=== PATIENT | male | born 1970 | race Caucasian/White ===

== ENCOUNTER 2017-04-26 16:33 | Inpatient (IN) | payer MEDICARE, MEDICAID ==
[~2017-04-26] VITALS: Ht 165.1 cm; Wt 68.9 kg
[2017-04-26] MEDS ORDERED: METO25 PO (17:01)
[2017-04-26] MEDS ORDERED: HYDR25TA84 PO (17:01)
[2017-04-26] MEDS ORDERED: ACET1TAB15 PO (17:01)
[2017-04-26] MEDS ORDERED: ALPR0.5T8 PO (17:01)
[2017-04-26] MEDS ORDERED: SEVEC800 PO (17:01)
[2017-04-26] MEDS ORDERED: SERT50TA12 PO (17:01)
[2017-04-26] MEDS ORDERED: ATOR10TA84 PO (17:01)
[2017-04-26] MEDS ORDERED: LAMO100 PO (17:01)
[2017-04-26] MEDS ORDERED: PANT40TA25 PO (17:03)
[2017-04-26] MEDS ORDERED: FAMO20 PO (17:03)
[2017-04-26] MEDS ORDERED: AMLO-511 PO (17:03)
[2017-04-26] MEDS ORDERED: LEVE500T53 PO (17:03)
[2017-04-26] MEDS ORDERED: DiphenhydrAMINE HCL 25 MG CAPSULE PO ONE (20:00)
[2017-04-26 20:16] LABS: BASOPHILS % (AUTO) 0.1 % (0.0-2.0); EOSINOPHILS # (AUTO) 0.02 K/uL (0.00-0.70); EOSINOPHILS % (AUTO) 0.27 % (1.0-6.0); HEMATOCRIT 30.2 % (41-53); HEMOGLOBIN 10.2 g/dL (13.5-17.5); LYMPHOCYTES # (AUTO) 0.4 K/uL (1.0-4.8); LYMPHOCYTES % (AUTO) 4.2 % (22.0-44.0); MEAN CORPUSCULAR HEMOGLOBIN 32.9 pg (26.0-34.0); MEAN CORPUSCULAR HGB CONC 33.8 G/dL (31.0-37.0); MEAN CORPUSCULAR VOLUME 97 fL (80-100); MONOCYTES # (AUTO) 0.5 K/uL (0.1-1.0); MONOCYTES % (AUTO) 5.4 % (2.0-9.0); NEUTROPHILS # (AUTO) 8.1 K/uL (1.8-7.7); PLATELET COUNT (AUTO) 169 K/uL (150-450); RED BLOOD CELL COUNT(AUTO) 3.11 MIL/uL (4.50-5.90); RED CELL DISTRIBUTION WIDTH 13.1 % (11.5-14.5)
[2017-04-26 20:17] LABS: NEUTROPHILS % (AUTO) 90.1 % (40.0-70.0)
[2017-04-26 20:34] LABS: ALANINE AMINOTRANSFERASE 17 U/L (12-78); ALKALINE PHOSPHATASE 78 U/L (46-116); ANION GAP 20 mmol/L (8-16); ASPARTATE AMINOTRANSFERASE < 5 U/L (15-37); BILIRUBIN,TOTAL 0.6 mg/dL (0.1-1.0); CALCIUM, TOTAL 10.4 mg/dL (8.8-10.5); CARBON DIOXIDE 19 mmol/L (22-29); CHLORIDE 96 mmol/L (98-107); CREATININE 17.23 mg/dL (0.60-1.30); GLOMERULAR FILTR. RATE CALC 3 mL/min (>60); GLUCOSE,RANDOM 100 mg/dL (70-110); POTASSIUM 5.3 mmol/L (3.5-5.1); SODIUM SERUM 135 mmol/L (136-145); TOTAL PROTEIN, SERUM 8.4 g/dL (6.4-8.2)
[2017-04-26 20:46] LABS: B-TYPE NATRIURETIC PEPTIDE 432 pg/mL (0-100)
[2017-04-26 20:48] LABS: UREA NITROGEN, BLOOD 114 mg/dL (7-18)
[2017-04-26] MEDS ORDERED: HydrALAZINE HCL 25 MG TABLET PO ONE (21:15)
[2017-04-26] MEDS ORDERED: ONDANSETRON HCL 4 MG/2 ML VIAL IVP PRN (22:00)
[2017-04-26] MEDS ORDERED: 0.9% SODIUM CHLORIDE 10 ML SYRINGE IVP PRN (22:00)
[2017-04-26] MEDS ORDERED: ACETAMINOPHEN 325 MG TABLET PO PRN (22:00)
[2017-04-26 22:26] VITALS: BP 152/83
[2017-04-26] MEDS ORDERED: PNEUMOCOCCAL VACCINE POLYVALENT 0.5 ML VIAL [PPSV23] IM ONE (23:00)
[2017-04-26] MEDS ORDERED: INFLUENZA VIRUS VACCINE QVS 2017-18 (3YR+)/PF 60 MCG/0.5 ML SYRINGE IM ONE (23:00)
[2017-04-27 04:58] VITALS: BP 145/98
[2017-04-27] MEDS ORDERED: SODIUM CHLORIDE 0.9% 2,000 ML IV ONE (10:11)
[2017-04-27] MEDS ORDERED: ACETAMINOPHEN/CODEINE 300-60 MG TABLET PO PRN (10:15)
[2017-04-27] MEDS: LevETIRAcetam 500 MG TABLET PO SCH ×2 (10:18→20:30)
[2017-04-27] MEDS: SERTRALINE HCL 50 MG TABLET PO SCH (14:28)
[2017-04-27] MEDS: LamoTRIgine 100 MG TABLET PO SCH (14:28)
[2017-04-27 15:24] LABS: INFLUENZA TYPE A NEGATIVE FOR TYPE A (NEGATIVE); INFLUENZA TYPE B NEGATIVE FOR TYPE B (NEGATIVE)
[2017-04-27 15:41] LABS: BASOPHILS % (AUTO) 0.3 % (0.0-2.0); EOSINOPHILS % (AUTO) 2.2 % (1.0-6.0); HEMATOCRIT 25.8 % (41-53); HEMOGLOBIN 9.1 g/dL (13.5-17.5); LYMPHOCYTES # (AUTO) 0.5 K/uL (1.0-4.8); LYMPHOCYTES % (AUTO) 10.9 % (22.0-44.0); MEAN CORPUSCULAR HEMOGLOBIN 33.1 pg (26.0-34.0); MEAN CORPUSCULAR HGB CONC 35.1 G/dL (31.0-37.0); MEAN CORPUSCULAR VOLUME 94 fL (80-100); MONOCYTES # (AUTO) 0.4 K/uL (0.1-1.0); MONOCYTES % (AUTO) 7.3 % (2.0-9.0); NEUTROPHILS # (AUTO) 3.9 K/uL (1.8-7.7); NEUTROPHILS % (AUTO) 79.3 % (40.0-70.0); PLATELET COUNT (AUTO) 155 K/uL (150-450); RED BLOOD CELL COUNT(AUTO) 2.74 MIL/uL (4.50-5.90); RED CELL DISTRIBUTION WIDTH 12.8 % (11.5-14.5)
[2017-04-27 15:48] VITALS: BP 138/90
[2017-04-27 16:08] LABS: ANION GAP 12 mmol/L (8-16); CALCIUM, TOTAL 9.3 mg/dL (8.8-10.5); CARBON DIOXIDE 26 mmol/L (22-29); CHLORIDE 99 mmol/L (98-107); CREATININE 8.43 mg/dL (0.60-1.30); GLOMERULAR FILTR. RATE CALC 7 mL/min (>60); GLUCOSE,RANDOM 157 mg/dL (70-110); POTASSIUM 3.3 mmol/L (3.5-5.1); SODIUM SERUM 137 mmol/L (136-145); UREA NITROGEN, BLOOD 46 mg/dL (7-18)
[2017-04-27 16:16] LABS: ALANINE AMINOTRANSFERASE 14 U/L (12-78); ALBUMIN 3.3 g/dL (3.4-5.0); ALKALINE PHOSPHATASE 66 U/L (46-116); ASPARTATE AMINOTRANSFERASE < 5 U/L (15-37); BILIRUBIN,TOTAL 0.6 mg/dL (0.1-1.0); TOTAL PROTEIN, SERUM 7.3 g/dL (6.4-8.2)
[2017-04-27] MEDS ORDERED: LIDOCAINE HCL/PF 1% 2 ML VIAL IM ONE (17:08)
[2017-04-27] MEDS ORDERED: POTASSIUM CHLORIDE 20 MEQ ER TABLET PO ONE (17:45)
[2017-04-27] MEDS: SEVELAMER CARBONATE 800 MG TABLET PO SCH (18:00)
[2017-04-27 19:55] VITALS: BP 126/72
[2017-04-27] MEDS: METOPROLOL TARTRATE 25 MG TABLET PO SCH (20:30)
[2017-04-27] MEDS: ALPRAZolam 0.5 MG TABLET PO SCH (20:30)
[2017-04-27] MEDS ORDERED: ATORVASTATIN CALCIUM 10 MG TABLET PO SCH (21:00)
[2017-04-27 23:50] VITALS: BP 137/82
[2017-04-28 04:52] VITALS: BP 131/85
[2017-04-28 07:32] VITALS: BP 130/84
[2017-04-28] MEDS ORDERED: FAMOTIDINE 20 MG TABLET PO SCH (09:00)
[2017-04-28] MEDS ORDERED: HydrALAZINE HCL 25 MG TABLET PO SCH (09:00)
[2017-04-28] MEDS ORDERED: PANTOPRAZOLE SODIUM 40 MG DR TABLET PO SCH (09:00)
[2017-04-28] MEDS ORDERED: AmLODIPine BESYLATE 5 MG TABLET PO SCH (09:00)
[2017-04-28 10:02] LABS: BASOPHILS % (AUTO) 0.3 % (0.0-2.0); EOSINOPHILS % (AUTO) 3.5 % (1.0-6.0); HEMATOCRIT 27.5 % (41-53); HEMOGLOBIN 9.4 g/dL (13.5-17.5); LYMPHOCYTES # (AUTO) 0.5 K/uL (1.0-4.8); MEAN CORPUSCULAR HEMOGLOBIN 32.9 pg (26.0-34.0); MEAN CORPUSCULAR HGB CONC 34.2 G/dL (31.0-37.0); MEAN CORPUSCULAR VOLUME 96 fL (80-100); MONOCYTES # (AUTO) 0.5 K/uL (0.1-1.0); MONOCYTES % (AUTO) 10.4 % (2.0-9.0); NEUTROPHILS # (AUTO) 3.8 K/uL (1.8-7.7); NEUTROPHILS % (AUTO) 75.8 % (40.0-70.0); PLATELET COUNT (AUTO) 163 K/uL (150-450); RED BLOOD CELL COUNT(AUTO) 2.86 MIL/uL (4.50-5.90); RED CELL DISTRIBUTION WIDTH 13.3 % (11.5-14.5)
[2017-04-28 10:17] LABS: ALBUMIN 3.3 g/dL (3.4-5.0); BILIRUBIN,TOTAL 0.5 mg/dL (0.1-1.0); CALCIUM, TOTAL 9.4 mg/dL (8.8-10.5); CREATININE 10.66 mg/dL (0.60-1.30); POTASSIUM 4.1 mmol/L (3.5-5.1); TOTAL PROTEIN, SERUM 7.3 g/dL (6.4-8.2)
[2017-04-28] MEDS ORDERED: SODIUM CHLORIDE 0.9% 2,000 ML IV ONE (10:40)
[2017-04-28] MEDS: SERTRALINE HCL 50 MG TABLET PO SCH (13:58)
[2017-04-28] MEDS: LamoTRIgine 100 MG TABLET PO SCH (13:59)
[2017-04-28] MEDS: LevETIRAcetam 500 MG TABLET PO SCH (13:59)
[2017-04-28] MEDS: METOPROLOL TARTRATE 25 MG TABLET PO SCH (14:01)
[2017-04-28] MEDS: ALPRAZolam 0.5 MG TABLET PO SCH (14:01)
[2017-04-28] MEDS: SEVELAMER CARBONATE 800 MG TABLET PO SCH ×2 (14:02→18:19)
[2017-04-28 15:19] VITALS: BP 132/83
[2017-04-28] MEDS ORDERED: LIDOCAINE HCL/PF 1% 2 ML VIAL INJ ONE (18:34)
== END 2017-04-28 18:35 | disposition home or self-care (01) | DRG 640 ==
LOC: EMS 16:34 → 6N 21:00
PROVIDERS: ADMIT Hospitalist; ATTEND Hospitalist
PROC: 5A1D70Z Performance of Urinary Filtration, Intermittent, Less than 6 Hours Per Day (ICD-10-PCS; principal; 2017-04-27)
PROC: 5A1D70Z Performance of Urinary Filtration, Intermittent, Less than 6 Hours Per Day (ICD-10-PCS; 2017-04-28)
DX: E87.70 Fluid overload, unspecified (principal); N18.6 End stage renal disease; I12.0 Hypertensive chronic kidney disease with stage 5 chronic kidney disease or end stage renal disease; I69.354 Hemiplegia and hemiparesis following cerebral infarction affecting left non-dominant side; G40.909 Epilepsy, unspecified, not intractable, without status epilepticus; K21.9 Gastro-esophageal reflux disease without esophagitis; F32.9 Major depressive disorder, single episode, unspecified; F41.9 Anxiety disorder, unspecified; D63.1 Anemia in chronic kidney disease; J40 Bronchitis, not specified as acute or chronic; T78.1XXA Other adverse food reactions, not elsewhere classified, initial encounter; X58.XXXA Exposure to other specified factors, initial encounter; Y93.89 Activity, other specified; Z99.2 Dependence on renal dialysis; Z91.15 Patient's noncompliance with renal dialysis; Z79.899 Other long term (current) drug therapy; Y92.89 Other specified places as the place of occurrence of the external cause; Y99.8 Other external cause status
CPT/HCPCS: 87081; 87340; 87804; 90935; 99285; J3490; J7030

== ENCOUNTER 2020-11-17 07:34 | Day surgery (SDC) | payer MEDICARE, OTHER ==
[~2020-11-17] VITALS: Ht 165.1 cm; Wt 65.9 kg
[~2020-11-17 07:34] MED LIST: ACET1TAB PO; ALPR0.5T8 PO; AMLO-257 PO; ATOR10TA84 PO; CeFAZolin 1 GM/DEXTROSE 50 ML IV ONE; FAMO20 PO; HYDR25TA84 PO; LAMO100 PO; LEVE500T53 PO; METO25 PO; PANT-31 PO; SERT-158 PO; SEVE800T17 PO; SODIUM CHLORIDE 0.9% 1,000 ML ONE
[2020-11-17] MEDS ORDERED: FentaNYL CITRATE PF 100 MCG/2 ML VIAL IVP ONE (07:35)
[2020-11-17] MEDS ORDERED: PROPOFOL 1% 20 ML VIAL IVP ONE (07:35)
[2020-11-17] MEDS ORDERED: MIDAZOLAM HCL 2 MG/2 ML VIAL IVP ONE (07:35)
[2020-11-17] MEDS ORDERED: SODIUM CHLORIDE 0.9% 1,000 ML IV ONE (08:00)
[2020-11-17 08:16] LABS: COVID AG,FIA SOURCE NASOPHARYNGEAL
[2020-11-17 08:20] LABS: BASOPHILS % (AUTO) 0.8 % (0.0-2.0); EOSINOPHILS % (AUTO) 7.3 % (1.0-6.0); HEMATOCRIT 26.7 % (41-53); HEMOGLOBIN 8.5 g/dL (13.5-17.5); LYMPHOCYTES # (AUTO) 0.7 K/uL (1.0-4.8); MEAN CORPUSCULAR HEMOGLOBIN 29.7 pg (26.0-34.0); MEAN CORPUSCULAR HGB CONC 31.9 G/dL (31.0-37.0); MEAN CORPUSCULAR VOLUME 93 fL (80-100); MONOCYTES # (AUTO) 0.6 K/uL (0.1-1.0); MONOCYTES % (AUTO) 9.5 % (2.0-9.0); NEUTROPHILS # (AUTO) 4.7 K/uL (1.8-7.7); NEUTROPHILS % (AUTO) 71.4 % (40.0-70.0); PLATELET COUNT (AUTO) 211 K/uL (150-450); RED BLOOD CELL COUNT(AUTO) 2.87 MIL/uL (4.50-5.90); RED CELL DISTRIBUTION WIDTH 18.4 % (11.5-14.5)
[2020-11-17 08:34] LABS: CALCIUM, TOTAL 9.5 mg/dL (8.8-10.5); CREATININE 5.45 mg/dL (0.60-1.30); POTASSIUM 4.1 mmol/L (3.5-5.1)
[2020-11-17 08:37] LABS: ALBUMIN 2.9 g/dL (3.4-5.0)
[2020-11-17 08:38] LABS: INR 1.1 (0.9-1.1); PROTHROMBIN TIME 11.9 SEC (9.4-11.6)
[2020-11-17 08:50] LABS: BILIRUBIN,TOTAL 0.4 mg/dL (0.1-1.0); TOTAL PROTEIN, SERUM 8.4 g/dL (6.4-8.2)
[2020-11-17] MEDS ORDERED: BACITRACIN 50,000 UNITS/VIAL ONE (09:39)
[2020-11-17] MEDS ORDERED: HEPARIN SODIUM,PORCINE 5,000 UNITS/ML VIAL ONE (09:39)
[2020-11-17] MEDS ORDERED: SODIUM CHLORIDE 0.9% 0 ML ONE ×3 (09:39→09:40)
[2020-11-17] MEDS ORDERED: LIDOCAINE/PF 1% 30 ML VIAL ONE (09:39)
[2020-11-17] MEDS ORDERED: CEPH750C9 PO (12:21)
[2020-11-17] MEDS ORDERED: ACETAMINOPHEN/CODEINE 300-60 MG TABLET PO PRN (12:30)
[2020-11-17] MEDS ORDERED: SEVELAMER CARBONATE 800 MG TABLET PO SCH (17:30)
[2020-11-17] MEDS ORDERED: METOPROLOL TARTRATE 25 MG TABLET PO SCH (21:00)
[2020-11-17] MEDS ORDERED: ALPRAZolam 0.5 MG TABLET PO SCH (21:00)
[2020-11-17] MEDS ORDERED: ATORVASTATIN CALCIUM 10 MG TABLET PO SCH (21:00)
[2020-11-17] MEDS ORDERED: LevETIRAcetam 500 MG TABLET PO SCH (21:00)
[2020-11-18] MEDS ORDERED: AmLODIPine BESYLATE 5 MG TABLET PO SCH (09:00)
[2020-11-18] MEDS ORDERED: LamoTRIgine 100 MG TABLET PO SCH (09:00)
[2020-11-18] MEDS ORDERED: FAMOTIDINE 20 MG TABLET PO SCH (09:00)
[2020-11-18] MEDS ORDERED: SERTRALINE HCL 50 MG TABLET PO SCH (09:00)
[2020-11-18] MEDS ORDERED: HydrALAZINE HCL 25 MG TABLET PO SCH (09:00)
[2020-11-18] MEDS ORDERED: PANTOPRAZOLE SODIUM 40 MG DR TABLET PO SCH (09:00)
== END 2020-11-17 14:50 | disposition home or self-care (01) ==
LOC: SURGERY 07:34
PROVIDERS: ATTEND Surgery
DX: T82.7XXA Infection and inflammatory reaction due to other cardiac and vascular devices, implants and grafts, initial encounter (principal); E78.5 Hyperlipidemia, unspecified; G47.33 Obstructive sleep apnea (adult) (pediatric); F32.9 Major depressive disorder, single episode, unspecified; E66.01 Morbid (severe) obesity due to excess calories; G20 Parkinson's disease; E21.3 Hyperparathyroidism, unspecified; I12.0 Hypertensive chronic kidney disease with stage 5 chronic kidney disease or end stage renal disease; N18.6 End stage renal disease; Y83.8 Other surgical procedures as the cause of abnormal reaction of the patient, or of later complication, without mention of misadventure at the time of the procedure; Z87.891 Personal history of nicotine dependence; Z98.890 Other specified postprocedural states; Z87.01 Personal history of pneumonia (recurrent); G40.909 Epilepsy, unspecified, not intractable, without status epilepticus
CPT/HCPCS: 35903; 36415; 80053; 85025; 85610; 85730; 86850; 86900; 86901; 86923; 87070 ×2; 87077; 87426; 88300; 93005; C9803; J0690; J2250; J2704; J3010; J3490; J7030; 87186; J1644; J7050

== ENCOUNTER 2021-04-27 16:16 | Inpatient (IN) | payer MEDICARE, OTHER ==
[~2021-04-27] VITALS: Ht 165.1 cm; Wt 74.1 kg
[~2021-04-27 16:16] MED LIST changes: +CEPH750C9 PO; -CeFAZolin 1 GM/DEXTROSE 50 ML IV ONE; +LEVE500T20 PO; -LEVE500T53 PO; -SODIUM CHLORIDE 0.9% 1,000 ML ONE
[2021-04-27 17:33] LABS: COVID AG,FIA SOURCE NASOPHARYNGEAL
[2021-04-27] MEDS ORDERED: MORPHINE SULFATE 4 MG/ML SYRINGE IVP ONE (17:45)
[2021-04-27] MEDS ORDERED: ONDANSETRON HCL 4 MG/2 ML VIAL IVP ONE (17:45)
[2021-04-27 18:45] LABS: INFLUENZA TYPE A NEGATIVE FOR TYPE A (NEGATIVE); INFLUENZA TYPE B NEGATIVE FOR TYPE B (NEGATIVE)
[2021-04-27] MEDS ORDERED: PIPERACILLIN/TAZO 3.375 GM/D5W 50 ML IV ONE (19:00)
[2021-04-27] MEDS ORDERED: VANCOMYCIN HCL 1 GM/D5% WATER 200 ML IV ONE (19:00)
[2021-04-27 19:42] LABS: BASOPHILS % (AUTO) 0.7 % (0.0-2.0); EOSINOPHILS % (AUTO) 9.4 % (1.0-6.0); HEMATOCRIT 28.5 % (41-53); HEMOGLOBIN 9.4 g/dL (13.5-17.5); LYMPHOCYTES # (AUTO) 0.9 K/uL (1.0-4.8); LYMPHOCYTES % (AUTO) 11.3 % (22.0-44.0); MEAN CORPUSCULAR HEMOGLOBIN 31.3 pg (26.0-34.0); MEAN CORPUSCULAR VOLUME 95 fL (80-100); MONOCYTES # (AUTO) 0.5 K/uL (0.1-1.0); MONOCYTES % (AUTO) 5.8 % (2.0-9.0); NEUTROPHILS # (AUTO) 5.6 K/uL (1.8-7.7); NEUTROPHILS % (AUTO) 72.8 % (40.0-70.0); PLATELET COUNT (AUTO) 234 K/uL (150-450); RED CELL DISTRIBUTION WIDTH 16.4 % (11.5-14.5)
[2021-04-27 19:58] LABS: ANION GAP 13 mmol/L (8-16); CARBON DIOXIDE 24 mmol/L (22-29); CHLORIDE 104 mmol/L (98-107); CREATININE 9.09 mg/dL (0.60-1.30); GLOMERULAR FILTR. RATE CALC 6 mL/min (>60); GLUCOSE,RANDOM 90 mg/dL (70-110); POTASSIUM 5.9 mmol/L (3.5-5.1); SODIUM SERUM 141 mmol/L (136-145); UREA NITROGEN, BLOOD 74 mg/dL (7-18)
[2021-04-27 20:00] LABS: INR 1.2 (0.9-1.1); PROTHROMBIN TIME 12.4 SEC (9.4-11.6)
[2021-04-27] MEDS ORDERED: BACITRACIN 0.9 GM PACKET OINTMENT TP ONE (20:00)
[2021-04-27 20:05] LABS: LACTIC ACID 1.1 mmol/L (0.4-2.0)
[2021-04-27 20:12] LABS: ALANINE AMINOTRANSFERASE 15 U/L (12-78); ALBUMIN 2.6 g/dL (3.4-5.0); ALKALINE PHOSPHATASE 181 U/L (46-116); ASPARTATE AMINOTRANSFERASE 24 U/L (15-37); BILIRUBIN,TOTAL 0.7 mg/dL (0.1-1.0); LIPASE 153 U/L (73-393)
[2021-04-27] MEDS ORDERED: LABETALOL HCL 5 MG/ML 20 ML VIAL IVP ONE (20:30)
[2021-04-27] MEDS ORDERED: INSULIN REGULAR, HUMAN 100 UNITS/ML IVP ONE (20:30)
[2021-04-27] MEDS ORDERED: SODIUM POLYSTYRENE SULFONATE 15 GM/60 ML SUSPENSION BOTTLE PO ONE (20:30)
[2021-04-27] MEDS ORDERED: DEXTROSE 50%-WATER 25 GM/50 ML SYRINGE IVP ONE (20:30)
[2021-04-27 20:44] LABS: B-TYPE NATRIURETIC PEPTIDE 4020 pg/mL (0-100)
[2021-04-27] MEDS ORDERED: ONDANSETRON HCL 4 MG/2 ML VIAL IVP PRN (21:15)
[2021-04-27] MEDS ORDERED: ZOLPIDEM TARTRATE 5 MG TABLET PO PRN (21:15)
[2021-04-27] MEDS ORDERED: MORPHINE SULFATE 2 MG/ML SYRINGE IVP PRN (21:15)
[2021-04-27] MEDS ORDERED: BISACODYL 10 MG RECTAL RECTAL SUPPOSITORY PR PRN (21:15)
[2021-04-27] MEDS ORDERED: MAGNESIUM HYDROXIDE SUSPENSION 30 ML UDCUP PO PRN (21:15)
[2021-04-27] MEDS ORDERED: ACETAMINOPHEN 325 MG TABLET PO PRN (21:15)
[2021-04-27] MEDS ORDERED: PIPERACILLIN SODIUM/TAZOBACTAM 0.75 GM in DEXTROSE 5%-WATER 50 ML IV PRN (21:45)
[2021-04-27] MEDS ORDERED: VANCOMYCIN HCL 1 GM/D5% WATER 200 ML IV PRN (21:45)
[2021-04-27 21:51] LABS: GLUCOMETER DEV NAME(LOC) ERT.5; GLUCOSE,POINT OF CARE 112 MG/DL (70-110)
[2021-04-27 21:51] LABS: GLUCOMETER DEV NAME(LOC) ERT.5; GLUCOSE,POINT OF CARE 249 MG/DL (70-110)
[2021-04-28] VITALS (7 sets, daily range): BP systolic 132–166; BP diastolic 76–100
[2021-04-28] MEDS: HYDROCODONE/ACETAMINOPHEN 5-325 MG TABLET PO PRN ×3 (01:43→07:40)
[2021-04-28] MEDS: HEPARIN SODIUM,PORCINE 5,000 UNITS/ML VIAL SQ SCH ×4 (01:43→23:57)
[2021-04-28] MEDS ORDERED: PIPERACILLIN SODIUM/TAZOBACTAM 2.25 GM in DEXTROSE 5%-WATER 50 ML IV SCH (04:00)
[2021-04-28] MEDS ORDERED: DiphenhydrAMINE HCL 25 MG CAPSULE PO ONE (07:15)
[2021-04-28 07:47] LABS: APPEARANCE,URINE CLOUDY (CLEAR); BILIRUBIN,URINE NEGATIVE (NEGATIVE); GLUCOSE, URINE (UA) 100 mg/dL (NEGATIVE); KETONES,URINE NEGATIVE (NEGATIVE); LEUKOCYTE ESTERASE ,URINE MODERATE (NEGATIVE); NITRATE,URINE NEGATIVE (NEGATIVE); OCCULT BLOOD,URINE LARGE (NEGATIVE); PH,URINE 8.5 (5.0-8.0); PROTEIN,URINE SEE CONFIRM (NEGATIVE); UROBILINOGEN,URINE 0.2 mg/dL (<=1.0)
[2021-04-28 07:51] LABS: AMPHET/METH SCREEN,URINE NEGATIVE (NEGATIVE); BARBITURATE SCREEN, URINE NEGATIVE (NEGATIVE); BENZODIAZEPINES SCREEN,URINE NEGATIVE (NEGATIVE); CANNABINOID SCREEN,URINE NEGATIVE (NEGATIVE); COCAINE SCREEN,URINE NEGATIVE (NEGATIVE); METHADONE SCREEN, URINE NEGATIVE (NEGATIVE); OPIATE SCREEN,URINE NEGATIVE (NEGATIVE)
[2021-04-28 07:52] LABS: PHENCYCLIDINE SCREEN,URINE NEGATIVE (NEGATIVE)
[2021-04-28 07:59] LABS: SULFOSALICYLIC ACID,URINE 4+ (Negative)
[2021-04-28] MEDS ORDERED: VANCOMYCIN HCL 500 MG in DEXTROSE 5%-WATER 100 ML IV ONE (08:00)
[2021-04-28 08:01] LABS: BACTERIA,URINE Few /HPF (None Seen); RBC,URINE None Seen /HPF (0-2); SQUAMOUS EPITHELIAL CELL,UR Few /LPF (None Seen)
[2021-04-28] MEDS: AmLODIPine BESYLATE 5 MG TABLET PO SCH (09:00)
[2021-04-28] MEDS: HydrALAZINE HCL 25 MG TABLET PO SCH (09:00)
[2021-04-28] MEDS: -POST HEMODIALYSIS NOTE- MISC SCH (09:00)
[2021-04-28] MEDS: METOPROLOL TARTRATE 25 MG TABLET PO SCH ×2 (09:00→20:29)
[2021-04-28] MEDS ORDERED: SODIUM CHLORIDE 0.9% 500 ML IV ONE (09:01)
[2021-04-28] MEDS: SEVELAMER CARBONATE 800 MG TABLET PO SCH ×2 (09:05→18:44)
[2021-04-28] MEDS: PIPERACILLIN SODIUM/TAZOBACTAM 2.25 GM in DEXTROSE 5%-WATER 50 ML IV SCH ×2 (09:05→20:29)
[2021-04-28] MEDS: PANTOPRAZOLE SODIUM 40 MG DR TABLET PO SCH (09:07)
[2021-04-28] MEDS: DOCUSATE SODIUM 100 MG CAPSULE PO SCH ×2 (09:07→20:29)
[2021-04-28] MEDS: SERTRALINE HCL 50 MG TABLET PO SCH (09:07)
[2021-04-28] MEDS: LevETIRAcetam 500 MG TABLET PO SCH ×2 (09:07→20:29)
[2021-04-28] MEDS: LamoTRIgine 100 MG TABLET PO SCH (09:07)
[2021-04-28 09:57] LABS: BASOPHILS % (AUTO) 0.7 % (0.0-2.0); HEMOGLOBIN 8.2 g/dL (13.5-17.5); LYMPHOCYTES % (AUTO) 13.8 % (22.0-44.0); MEAN CORPUSCULAR HGB CONC 32.6 G/dL (31.0-37.0); MEAN CORPUSCULAR VOLUME 95 fL (80-100); MONOCYTES # (AUTO) 0.5 K/uL (0.1-1.0); MONOCYTES % (AUTO) 7.8 % (2.0-9.0); NEUTROPHILS # (AUTO) 4.1 K/uL (1.8-7.7); NEUTROPHILS % (AUTO) 59.1 % (40.0-70.0); PLATELET COUNT (AUTO) 223 K/uL (150-450); RED BLOOD CELL COUNT(AUTO) 2.63 MIL/uL (4.50-5.90); RED CELL DISTRIBUTION WIDTH 15.9 % (11.5-14.5)
[2021-04-28 09:58] LABS: CALCIUM, TOTAL 10.1 mg/dL (8.8-10.5); CREATININE 9.45 mg/dL (0.60-1.30); POTASSIUM 5.5 mmol/L (3.5-5.1)
[2021-04-28 10:01] LABS: EOSINOPHILS % (AUTO) 18.6 % (1.0-6.0)
[2021-04-28] MEDS ORDERED: SODIUM CHLORIDE 0.9% 1,000 ML ONE (10:46)
[2021-04-28] MEDS: DiphenhydrAMINE HCL 25 MG CAPSULE PO PRN ×2 (17:16→20:47)
[2021-04-28] MEDS: ATORVASTATIN CALCIUM 10 MG TABLET PO SCH (20:29)
[2021-04-29 04:28] VITALS: BP 152/81
[2021-04-29] MEDS: HEPARIN SODIUM,PORCINE 5,000 UNITS/ML VIAL SQ SCH ×2 (08:00→16:00)
[2021-04-29] MEDS: DOCUSATE SODIUM 100 MG CAPSULE PO SCH ×2 (09:00→19:43)
[2021-04-29] MEDS ORDERED: EPOETIN ALFA 10,000 UNITS/ML VIAL SQ SCH (09:00)
[2021-04-29] MEDS: PIPERACILLIN SODIUM/TAZOBACTAM 2.25 GM in DEXTROSE 5%-WATER 50 ML IV SCH ×2 (10:25→19:42)
[2021-04-29] MEDS: -POST HEMODIALYSIS NOTE- MISC SCH (10:25)
[2021-04-29] MEDS: HydrALAZINE HCL 25 MG TABLET PO SCH (10:32)
[2021-04-29] MEDS: LamoTRIgine 100 MG TABLET PO SCH (10:32)
[2021-04-29] MEDS: SERTRALINE HCL 50 MG TABLET PO SCH (10:32)
[2021-04-29] MEDS: LevETIRAcetam 500 MG TABLET PO SCH ×2 (10:32→19:43)
[2021-04-29] MEDS: METOPROLOL TARTRATE 25 MG TABLET PO SCH ×2 (10:33→19:43)
[2021-04-29] MEDS: PANTOPRAZOLE SODIUM 40 MG DR TABLET PO SCH (10:33)
[2021-04-29] MEDS: SEVELAMER CARBONATE 800 MG TABLET PO SCH ×2 (10:33→17:46)
[2021-04-29] MEDS: AmLODIPine BESYLATE 5 MG TABLET PO SCH (10:33)
[2021-04-29 10:50] VITALS: BP 163/104
[2021-04-29 11:51] LABS: GLUCOMETER DEV NAME(LOC) 5N.3; GLUCOSE,POINT OF CARE 121 MG/DL (70-110)
[2021-04-29 12:14] VITALS: BP 155/95
[2021-04-29] MEDS: HydrALAZINE HCL 20 MG/ML VIAL IVP PRN (12:55)
[2021-04-29] MEDS ORDERED: INSULIN LISPRO 100 UNITS/ML SQ PRN (15:15)
[2021-04-29] MEDS ORDERED: DEXTROSE 50%-WATER 25 GM/50 ML SYRINGE IVP PRN (15:15)
[2021-04-29 18:33] VITALS: BP 164/104
[2021-04-29] MEDS: ATORVASTATIN CALCIUM 10 MG TABLET PO SCH (19:43)
[2021-04-29 20:35] VITALS: BP 160/93
[2021-04-30 00:12] LABS: GLUCOMETER DEV NAME(LOC) 5S.1; GLUCOSE,POINT OF CARE 105 MG/DL (70-110)
[2021-04-30 00:12] LABS: GLUCOMETER DEV NAME(LOC) 5S.1; GLUCOSE,POINT OF CARE 107 MG/DL (70-110)
[2021-04-30] MEDS: DiphenhydrAMINE HCL 25 MG CAPSULE PO PRN ×2 (00:29→20:28)
[2021-04-30] MEDS: HydrALAZINE HCL 20 MG/ML VIAL IVP PRN (05:46)
[2021-04-30 06:04] VITALS: BP 138/92
[2021-04-30] MEDS: SEVELAMER CARBONATE 800 MG TABLET PO SCH ×2 (08:00→18:21)
[2021-04-30] MEDS: HEPARIN SODIUM,PORCINE 5,000 UNITS/ML VIAL SQ SCH ×4 (08:00→23:19)
[2021-04-30] MEDS: PIPERACILLIN SODIUM/TAZOBACTAM 2.25 GM in DEXTROSE 5%-WATER 50 ML IV SCH ×2 (08:00→20:17)
[2021-04-30] MEDS: -POST HEMODIALYSIS NOTE- MISC SCH (09:00)
[2021-04-30] MEDS: LamoTRIgine 100 MG TABLET PO SCH (09:00)
[2021-04-30] MEDS: SERTRALINE HCL 50 MG TABLET PO SCH (09:00)
[2021-04-30] MEDS: DOCUSATE SODIUM 100 MG CAPSULE PO SCH ×2 (09:00→20:17)
[2021-04-30] MEDS: PANTOPRAZOLE SODIUM 40 MG DR TABLET PO SCH (09:00)
[2021-04-30] MEDS: LevETIRAcetam 500 MG TABLET PO SCH ×2 (09:00→20:17)
[2021-04-30 10:15] VITALS: BP 155/98
[2021-04-30] MEDS: METOPROLOL TARTRATE 25 MG TABLET PO SCH ×2 (10:37→20:16)
[2021-04-30] MEDS: HydrALAZINE HCL 25 MG TABLET PO SCH (10:38)
[2021-04-30] MEDS: AmLODIPine BESYLATE 5 MG TABLET PO SCH (10:38)
[2021-04-30] MEDS ORDERED: SODIUM CHLORIDE 0.9% 2,000 ML ONE (11:37)
[2021-04-30 16:00] VITALS: BP 139/102
[2021-04-30] MEDS ORDERED: DiphenhydrAMINE HCL 25 MG CAPSULE PO ONE (17:00)
[2021-04-30] MEDS: ATORVASTATIN CALCIUM 10 MG TABLET PO SCH (20:17)
[2021-04-30 20:22] VITALS: BP 158/107
[2021-04-30] MEDS ORDERED: HEPARIN SODIUM,PORCINE 1,000 UNITS/ML VIAL IVP ONE ×2 (21:25→21:28)
[2021-04-30 22:21] LABS: GLUCOMETER DEV NAME(LOC) 5S.2B; GLUCOSE,POINT OF CARE 104 MG/DL (70-110)
[2021-04-30 22:21] LABS: GLUCOMETER DEV NAME(LOC) 5S.2B; GLUCOSE,POINT OF CARE 118 MG/DL (70-110)
[2021-05-01 00:20] VITALS: BP 158/92
[2021-05-01] MEDS: HYDROCODONE/ACETAMINOPHEN 5-325 MG TABLET PO PRN (03:15)
[2021-05-01 04:00] VITALS: BP 174/107
[2021-05-01] MEDS: HydrALAZINE HCL 20 MG/ML VIAL IVP PRN ×2 (04:48→16:18)
[2021-05-01] MEDS: HEPARIN SODIUM,PORCINE 5,000 UNITS/ML VIAL SQ SCH ×2 (08:00→16:00)
[2021-05-01] MEDS: PIPERACILLIN SODIUM/TAZOBACTAM 2.25 GM in DEXTROSE 5%-WATER 50 ML IV SCH (08:00)
[2021-05-01] MEDS: LevETIRAcetam 500 MG TABLET PO SCH (08:43)
[2021-05-01] MEDS: PANTOPRAZOLE SODIUM 40 MG DR TABLET PO SCH (08:44)
[2021-05-01] MEDS: DOCUSATE SODIUM 100 MG CAPSULE PO SCH (08:44)
[2021-05-01] MEDS: SEVELAMER CARBONATE 800 MG TABLET PO SCH (08:44)
[2021-05-01] MEDS: HydrALAZINE HCL 25 MG TABLET PO SCH (09:00)
[2021-05-01] MEDS: AmLODIPine BESYLATE 5 MG TABLET PO SCH (09:00)
[2021-05-01] MEDS: LamoTRIgine 100 MG TABLET PO SCH (09:00)
[2021-05-01] MEDS: METOPROLOL TARTRATE 25 MG TABLET PO SCH (09:00)
[2021-05-01] MEDS: SERTRALINE HCL 50 MG TABLET PO SCH (09:00)
[2021-05-01] MEDS: -POST HEMODIALYSIS NOTE- MISC SCH (09:00)
[2021-05-01 11:30] LABS: BASOPHILS % (AUTO) 0.9 % (0.0-2.0); HEMATOCRIT 26.9 % (41-53); LYMPHOCYTES # (AUTO) 0.8 K/uL (1.0-4.8); LYMPHOCYTES % (AUTO) 16.9 % (22.0-44.0); MEAN CORPUSCULAR HEMOGLOBIN 30.9 pg (26.0-34.0); MEAN CORPUSCULAR HGB CONC 33.3 G/dL (31.0-37.0); MEAN CORPUSCULAR VOLUME 93 fL (80-100); MONOCYTES # (AUTO) 0.3 K/uL (0.1-1.0); MONOCYTES % (AUTO) 7.3 % (2.0-9.0); NEUTROPHILS # (AUTO) 2.5 K/uL (1.8-7.7); NEUTROPHILS % (AUTO) 54.1 % (40.0-70.0); PLATELET COUNT (AUTO) 243 K/uL (150-450); RED CELL DISTRIBUTION WIDTH 15.6 % (11.5-14.5)
[2021-05-01 11:32] LABS: EOSINOPHILS % (AUTO) 20.8 % (1.0-6.0)
[2021-05-01 11:43] VITALS: BP 160/126
[2021-05-01 11:49] LABS: HEMOGLOBIN A1C 5.3 % (3.8-5.6)
[2021-05-01 11:54] LABS: CREATININE 5.83 mg/dL (0.60-1.30); POTASSIUM 4.2 mmol/L (3.5-5.1)
[2021-05-01 11:55] LABS: VANCOMYCIN,RANDOM 16.3 mcg/mL (25.0-50.0)
[2021-05-01] MEDS ORDERED: CLIN300C3 PO (12:31)
[2021-05-01] MEDS ORDERED: CEPH500C3 PO (12:31)
[2021-05-01] MEDS ORDERED: VANCOMYCIN HCL 750 MG in DEXTROSE 5%-WATER 250 ML IV ONE (14:00)
[2021-05-01 15:58] VITALS: BP 160/115
[2021-05-02 14:06] LABS: GLUCOMETER DEV NAME(LOC) 5N.1C; GLUCOSE,POINT OF CARE 114 MG/DL (70-110)
[2021-05-02 19:31] LABS: GLUCOMETER DEV NAME(LOC) 5N.3; GLUCOSE,POINT OF CARE 111 MG/DL (70-110)
== END 2021-05-01 18:05 | disposition home health service (06) | DRG 602 ==
LOC: EMS 16:36 → 5N 22:17 → 5S 05-01 06:41
PROVIDERS: ADMIT Internal Medicine; ATTEND Internal Medicine
DX: L03.116 Cellulitis of left lower limb (principal); N18.6 End stage renal disease; I50.30 Unspecified diastolic (congestive) heart failure; I13.2 Hypertensive heart and chronic kidney disease with heart failure and with stage 5 chronic kidney disease, or end stage renal disease; E44.0 Moderate protein-calorie malnutrition; L03.115 Cellulitis of right lower limb; L02.92 Furuncle, unspecified; I15.8 Other secondary hypertension; E87.5 Hyperkalemia; D64.9 Anemia, unspecified; G40.909 Epilepsy, unspecified, not intractable, without status epilepticus; E78.5 Hyperlipidemia, unspecified; S81.802A Unspecified open wound, left lower leg, initial encounter; S81.801A Unspecified open wound, right lower leg, initial encounter; X58.XXXA Exposure to other specified factors, initial encounter; Z99.2 Dependence on renal dialysis; Z79.899 Other long term (current) drug therapy; Z86.73 Personal history of transient ischemic attack (TIA), and cerebral infarction without residual deficits; Z91.19 Patient's noncompliance with other medical treatment and regimen; Z68.27 Body mass index [BMI] 27.0-27.9, adult; Y93.89 Activity, other specified; Y92.89 Other specified places as the place of occurrence of the external cause; Y99.8 Other external cause status
CPT/HCPCS: 71045; 80048; 80053; 80202; 81001; 81002; 82962; 83036; 83605; 83690; 83880; 84484; 85025; 85610; 87040; 87081; 87340; 87804; 90935; 93005; 93306; 93925; 99291; G0480; J0360; J0885; J1644; J1815; J2270; J2405; J2543; J3370; J3490; J7030; J7040; J7060; 36415-L1; 36415-TC; U0003